=== PATIENT | female | born 1995 | race African-American/Black ===

== ENCOUNTER 2017-05-09 14:25 | Inpatient (IN) | payer OTHER ==
[~2017-05-09] VITALS: Ht 165.1 cm; Wt 80.0 kg
[2017-05-30] MEDS ORDERED: PRENATAL PO (20:12)
[2017-06-17] VITALS (7 sets, daily range): BP systolic 109–127; BP diastolic 55–72; PULSE 71–106; TEMP 98.4–98.5
[2017-06-17 19:57] LABS: BASO # 0.1 (0.0-0.2); BASO % 0.3 % (0.0-2.0); EOS # 0.1 (0.0-0.7); GRAN # 11.2 (1.4-6.5); GRAN % 78.2 % (42.2-75.2); HEMATOCRIT 43.2 % (35.0-45.0); LYMPH # 1.5 (1.2-3.4); LYMPH % 10.2 % (20.0-51.0); MEAN CELL VOLUME 90 fl (80.0-95.0); MEAN CORPUSCULAR HEMOGLOBIN 31 pg (26.0-32.0); MEAN CORPUSCULAR HGB CONC 35 g/dl (33.0-37.0); MEAN PLATELET VOLUME 10.8 fl (7.4-10.4); MONO # 1.4 (0.1-0.6); PLATELET COUNT 215 K/mm3 (130-400); WHITE BLOOD COUNT 14.4 K/mm3 (4.8-10.8)
[2017-06-18] VITALS (48 sets, daily range): BP systolic 107–146; BP diastolic 55–100; PULSE 70–136; TEMP 98–99.2
[2017-06-19 04:15] VITALS: BP 119/65; PULSE 78; TEMP 98.1
[2017-06-19 08:30] VITALS: BP 124/66; PULSE 85; TEMP 97.9
[2017-06-19] MEDS ORDERED: IBU600 MG PO (08:43)
== END 2017-06-19 17:30 | disposition home or self-care (01) | DRG 775 ==
LOC: LDR → OB 06-17 19:00 → LDR 06-18 06:56 → OB 06-18 16:45
PROVIDERS: Obstetrics & Gynecology
PROC: 10E0XZZ Delivery of Products of Conception, External Approach (ICD-10-PCS; principal; 2017-06-17)
PROC: 0W8NXZZ Division of Female Perineum, External Approach (ICD-10-PCS; 2017-06-17)
DX: O48.0 Post-term pregnancy (principal); Z3A.40 40 weeks gestation of pregnancy; Z37.0 Single live birth
CPT/HCPCS: J2590; J7120

== ENCOUNTER 2017-05-30 20:18 | Outpatient (CLI) | payer OTHER ==
[~2017-05-30] VITALS: Ht 165.1 cm; Wt 77.3 kg
[~2017-05-30 20:18] MED LIST: PRENATAL PO
[2017-05-30 21:19] VITALS: BP 125/72; PULSE 109; TEMP 98.2
== END 2017-05-30 21:40 | disposition home or self-care (01) ==
LOC: COL.ER 20:18 → LDRO 20:18 → LDR 20:45 → EDSTATUS 20:55 → LDRO 21:40
DX: O71.89 Other specified obstetric trauma (principal); V89.2XXA Person injured in unspecified motor-vehicle accident, traffic, initial encounter; Z3A.38 38 weeks gestation of pregnancy
CPT/HCPCS: OP